=== PATIENT | female | born 1975 | race Caucasian/White ===

== ENCOUNTER → 2017-06-03 11:57 | Outpatient (CLI) | payer MEDICAID, SELFPAY ==
--- NOTE | 2017-06-03 12:00 | RAD_ITS ---
STUDY: X-RAY - PELVIS AND BILATERAL HIPS REASON FOR EXAM: Female, 42 years old. Bilateral hip pain. TECHNIQUE: Radiological exam, hip, bilateral, with pelvis when performed; 2 views COMPARISON: July 10, 2015 FINDINGS: There is a non-specific bowel gas pattern. Normal visualized soft tissue structures. Normal bilateral iliac wings, sacroiliac joints and visualized sacrum. Normal bilateral superior and inferior pubic rami. Normal pubic symphysis. Normal bilateral ischial tuberosities. There is stable mild arthrosis of both hips, left slightly greater than right. RAD/Hips B/L min 2 views w/ Pelvis IMPRESSION: Stable mild arthrosis of both hips, left slightly greater than right. Electronically Signed: Brent George MD at 18:45 EST , Service support ,
== END ==
PROVIDERS: Visit Provider Anesthesiology Pain Medicine
DX: M25.559 Pain in unspecified hip (principal)
CPT/HCPCS: 73521

== ENCOUNTER 2017-06-24 21:57 | Emergency (ER) | payer MEDICAID, SELFPAY ==
[2017-06-24 21:58] VITALS: BP 164/110; PULSE 98; RESP 20; TEMP 36.4; O2SAT 95; BMI 44.4
--- NOTE | 2017-06-24 22:48 | ED.VISSUMM ---
- ER Visit Summary Date of Service: 06/24/17 Chief Complaint: Headache History of Present Illness: The patient is a 42 F presenting with gradual onset headache ?2 weeks. She states she has tried Sudafed, DayQuil at home with no relief. She states the headache has been persistent for 2 weeks. She has a history of migraine headaches. Denies trauma. Denies fever. She has a history of chronic neck pain and she is in pain management. Denies other complaints. Physical Examination: Vitals are stable. Patient is afebrile. Alert no acute distress. HEENT exam is unremarkable. Neck is supple. No meningismus Lungs are clear and equal bilaterally. Heart is regular rate and rhythm. Abdomen is soft nontender nondistended. Extremities are unremarkable. Skin is warm and dry. No focal neurologic deficit. Remainder of exam is unremarkable. Emergency Department Course and Treatment: Patient has multiple allergies. She is given morphine, Phenergan IV. On repeat evaluation, patient is feeling much improved. She is advised to follow-up with her primary care physician and her pain management physician. She is advised return to ED for worsening complaints. Disposition: Discharge home Impression: Headache, improved This note was generated with [employer] dictation software. It may contain incorrect words, spelling, and punctuation that were not noted in review of the chart prior to signing ED Disposition - Plan for ED Patient: Chief Complaint: Headache Referrals: Sachin Kapoor,Out of [Primary Care Provider] -
--- NOTE | 2017-06-25 00:09 | ED.DEP ---
ED Disposition - Plan for ED Patient: Chief Complaint: Headache Instructions: ED Cephalgia Unspecified Referrals: [facility],Out of [Primary Care Provider] -
[2017-06-25 00:12] VITALS: BP 128/89; PULSE 89; RESP 14
== END 2017-06-25 00:19 | disposition home or self-care (01) ==
PROVIDERS: Emergency Provider Emergency Medicine
DX: R51 Headache (principal); M54.2 Cervicalgia; J45.909 Unspecified asthma, uncomplicated; I10 Essential (primary) hypertension; Z72.0 Tobacco use; Z79.899 Other long term (current) drug therapy
CPT/HCPCS: 96374; 96375; 99283; A4216

== ENCOUNTER 2017-08-20 13:00 | Outpatient (RCR) | payer MEDICAID, SELFPAY ==
--- NOTE | 2017-07-09 12:05 | HP.PTEVAL_ITS ---
Patient's Visit Information RICKY SERRATO is a 42 year old F referred to Physical Therapy by Michell CONSTANTINO with a diagnosis of NECK, BACK AND HIP PAIN. Date of Evaluation: 07/09/17 Physical Therapist: Joslyn Sinclair - Visit Plan Frequency: 2-3x /Week Duration: 4-6 Weeks Plan: LATEX ALLERGY. PATIENT REPORTS SHE DOES NOT SWIM AND THERAPIST MAY NEED TO GET IN THE POOL. AQUATIC THERAPY FOR POSTURE CORRECTION/STRENGTHENING, INSTRUCTION IN APPROPRIATE BODY MECHANICS AND ACTIVITY MODIFICATIONS. DLS STARTING WITH A NEUTRAL SPINE PROGRESSING ROM TOLERATED. QUINCY LE ROM, STRETCHING AND STRENGTHENING. HEP INSTRUCTION. - Subjective Subjective: Diagnosis: NECK, BACK AND HIP PAIN. 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 Disability: YES. PATIENT REPORTS IT IS NONE OF MY BUSINESS WHY SHE IS ON DISABILITY. Present symptoms: NECK PAIN, QUINCY HIP PAIN, LOW BACK PAIN. INTERMITTENT QUINCY UE AND LE DAILY PAIN, NUMBNESS AND TINGLING IN HER ARMS. BUT THERE ARE ALSO SPOTS IN LEGS, NECK AND BACK THAT ARE ALWAYS NUIMB. Present since: YEARS. Pain Scale: WORST 10/10, LEAST 6/10. Currently: 8/10. Commenced as a result of: NO APPARENT REASON. Symptoms at onset: PATIENT STATES SHE DOESN'T KNOW. Worse: WALKING, DOING DISHES, SWEEPINIG AND MOPPING, STEPS, LIFTING LAUNDRY, DRIVING, GETTING UP AND DOWN FROM THE TOLIET AND TRYING TO WIPE, BENDING. Better: I DON'T KNOW TENSION HEADACHE MEDICINE FROM [email or web address] Application. [employer] HEMP OIL. Disturbed sleep : YES. Previous history/Previous treatment: PHYSICAL THERAPY HERE AT [facility], MASSAGE THERAPY, CHIROPRACTIC, NO SPIINE OR HIP SURGERIES. NECK AND HIP INJECTIONS. NECK INJECTIONS DID NOT HELP AND THE HIP INJECTIONS HELPED FOR MAYBE A WEEK. Coughing/sneezing/straining: POSITIVE. Gait: USES A WALKER AT TIMES IF GOING OUT. USES A W/C AT TIMES TOO. Difficulty initiating urinatin: NO. DIZZINESS: YES. NAUSEA: YES. TINNITIS: YES. DIFFICULTY SWOLLOWING: YES. Accidents: NO. Unexplained weight loss: 35 LBS IN ABOUT A MONTH RECENTLY THAT SHE REOPORTS HER DOCTORS ARE AWARE OF. Imaging: Stable mild arthrosis of both hips, left slightly greater than right. JULY 2013 NECK - Normal cervical lordosis. There is mild disc space narrowing with endplate. spondylosis predominantly at C4-5 and C5-6. Uncovertebral joint spurring. is also noted at these levels. Normal disc space heights. No acute. fracture demonstrated. PMH: STROKE 2005, HTN, LOW BLOOD SUGAR. MIGRAINES. LATEX ALLERGY. 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 - Objective Sitting Posture: POOR. Lordosis: NORMAL. Lateral shift: NO. Relevant shift : N/A. Active Correction of posture: WORSE. Other Observations: INDEP GAIT INTO PT WITHOUT ASSISTIVE DEVICE OR LOSS OF BALANCE. INDEP TRANSFER SIT TO STAND WITHOUT UE ASSIST. Motor deficit: LEFT UE AND LE STRENGTH 5/5 WITH MMT. RIGHT UE AND LE STRENGTH GROSSLY 4/5 WITH MMT. Sensory deficit: QUINCY UE AND LE LIGHT TOUCH SENSATION APPEARS TO BE INTACT AND SYMMETRICAL BUT MORE SOPHISTICATED TESTING MAY BE BENEFICIAL. ROM deficit: QUINCY SHOULDER ELEVATION IS APPROXIMATELY 25% LIMITED. Dural Signs: POSITIVE QUINCY LE DURAL SIGNS. Lumbar mvmt loss: flex - MOD. ext - MOD. R SG - MOD. L SG - MOD. Core strength: POOR. Posture strength: poor. Cervical mvmt loss: MINIMAL ALL PLANES EXCEPT RETRACTION MODERATE. PATIENT HAS C/O INCREASED NECK PAIN AND INCREASED LOW BACK PAIN WITH ROM TESTING ALL PLANES. PATIENT ALSO HAS C/O INCREASED PAIN IN SHOULDERS AND HIPS WITH MMT'ING EVEN THOUGH I PROCEEDED CAREFULLY WITH ALL TESTING. Palpation: OTHER: PATIENT GETS AGGITATED OFF AND ON THROUGH OUT SESSION. STATES SHE JUST WANTS AN MRI AND DOES NOT WANT TO HAVE TO DO PT AGAIN. - Goals Goal 1:: DECREASE C/O NECK, BACK AND HIP PAIN Goal Time Frame: 4-6 Weeks Goal 2:: IMPROVE PERSONAL CARE, LIFTING, WALKING, SITTING, STANDING, SLEEP, SOCIAL LIFE, TRAVEL AND EMPLOYMENT/HOMEMAKING FUNCTION. Goal Time Frame: 4-6 Weeks Goal 3:: INSTRUCT IN PROPHYLAXIS Goal Time Frame: 4-6 Weeks - Rehabilitation Potential Rehabilitation Potential: Fair - Anticipated Interventions Patient/Client Instruction: Educate patient on: Condition, Plan of Care, Risk Factors, Benefits of Fitness Program For the Purpose of:: To improve self management Therapeutic Exercise to Include: Strength training, Body mechanics, Postural training, Flexibilty training, In an aquatic setting, Active ROM, Dynamic Lumbar Stabilization, Scapular Strength/Stabilization For the Purpose of:: To decrease pain, To increase ROM, To improve muscle performance and motor function, To improve ability to perform ADL's, To increase tolerance to activity/condition/position, To improve ability of physical actions for home/community/work/leisure, To improve gait and locomotor functions Thank you for the opportunity to evaluate your patient. For Medicare and Medicare HMO plans, please review the plan of care and approve it. It will need to be FAXED BACK to us at [phone] for Medicare purposes. Please let me know if there are questions or concerns regarding this plan of care. Physician Signature: Date:
--- NOTE | 2017-08-10 12:16 | HP.PT.NRP ---
HP - Discharge Summary (1) - Patient Information RICKY SERRATO was seen in my office for initial evaluation on 07/09/17. The following Plan of Care was established for this patient: Initial Frequency: 2-3x /Week Initial Duration: 4-6 Weeks - Anticipated Interventions Patient/Client Instruction: Educate patient on: Condition, Plan of Care, Risk Factors, Benefits of Fitness Program For the Purpose of:: To improve self management Therapeutic Exercise to Include: Strength training, Body mechanics, Postural training, Flexibilty training, In an aquatic setting, Active ROM, Dynamic Lumbar Stabilization, Scapular Strength/Stabilization For the Purpose of:: To decrease pain, To increase ROM, To improve muscle performance and motor function, To improve ability to perform ADL's, To increase tolerance to activity/condition/position, To improve ability of physical actions for home/community/work/leisure, To improve gait and locomotor functions This patient was last seen in our office . Pertinent comments regarding their Physical therapy will appear below: This patient has not returned to Physical Therapy and is appropriate to return to MD for further follow-up as needed. At this point I will be discontinuing this patient from physical therapy. I would be happy to see this patient again in the future if found appropriate by the physician. Thank you! Joslyn Sinclair
== END 2017-08-20 19:00 | disposition home or self-care (01) ==
LOC: PT 13:00
PROVIDERS: Visit Provider Anesthesiology Pain Medicine
DX: M54.9 Dorsalgia, unspecified (principal); M54.2 Cervicalgia; M79.606 Pain in leg, unspecified
CPT/HCPCS: 97113; 97162

== ENCOUNTER → 2019-06-02 09:59 | Outpatient (CLI) | payer MEDICAID, SELFPAY ==
[2019-06-02 09:52] VITALS: BMI 44.4
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
== END ==
PROVIDERS: Referring Provider Physician Assistant; Visit Provider Physician Assistant
DX: M54.2 Cervicalgia (principal); M25.511 Pain in right shoulder
CPT/HCPCS: 72050; 73030

== ENCOUNTER → 2020-06-25 13:19 | Outpatient (CLI) | payer MEDICAID, SELFPAY ==
[2019-06-02 09:52] VITALS: BMI 44.4
--- NOTE | 2020-06-25 13:27 | CT_ITS ---
STUDY: CTA CORONARY REASON FOR EXAM: Female, 45 years old. PAIN RADIATION DOSAGE (If Supplied By Facility): CTDIvol = ( 19.29 ) mGy, DLP = ( 800.13 ) mGycm TECHNIQUE: Tomographic images were obtained of the heart and chest with a 64 detector row scanner using slice thicknesses of less than 1 mm. IV 100mL Isovue-300 was injected intravenously. Post-processing of the angiographic images was performed, with multiplanar reformation and 3D reconstruction. Individualized dose optimization techniques were used for this CT. TECHNICAL QUALITY: Fair COMPARISON: None. CORONARY ANGIOGRAPHY: Coronary CT Angiogram Descriptors of Atherosclerosis: Stenosis: None (0%) Mild (< 50%) Moderate (50-70%) Severe (70-90%) Subtotal/Total Occlusion (90-100%) Non-Evaluable Plaque Characteristics: None Non-Calcified (Soft) Calcified Mixed FINDINGS: LEFT MAIN CORONARY ARTERY: Left Main Coronary Artery CT Angiogram: Free of significant atherosclerosis. LEFT ANTERIOR DESCENDING ARTERY: Left Anterior Descending (LAD) Coronary Artery CT Angiogram: Proximal 1/3: Free of significant atherosclerosis. Middle 1/3: Free of significant atherosclerosis. Distal 1/3: Free of significant atherosclerosis. 1st Diagonal Branch: Free of significant atherosclerosis. 2nd Diagonal Branch: Free of significant atherosclerosis. LEFT CIRCUMFLEX ARTERY: Left Circumflex (LCx) Coronary Artery CT Angiogram: Proximal 1/2: Free of significant atherosclerosis. Distal 1/2: Free of significant atherosclerosis. High Lateral Branches: Free of significant atherosclerosis. Obtuse Marginal Branches: Free of significant atherosclerosis. RIGHT CORONARY ARTERY: Right Coronary Artery (RCA) CT Angiogram: Proximal 1/3: Free of significant atherosclerosis. Middle 1/3: Free of significant atherosclerosis. Distal 1/3: Not assessable. PDA: Not assessable. I-L Branches: Not assessable. CORONARY ARTERY BYPASS GRAFTS: None. NONCORONARY CARDIAC STRUCTURE: CARDIAC CHAMBERS: Normal CARDIAC VALVES: Normal. PERICARDIUM: Normal. GREAT VESSELS: Normal. VISUALIZED LUNG PARENCHYMA, MEDIASTINUM AND CHEST WALL: Normal. CT/Limited Chest CT w/CCTA IMPRESSION: Normal examination free of significant atherosclerosis. Electronically Signed: Trenton Flores MD (Brooks) at 8:48 EDT , Service support ,
[2020-06-25 13:34] VITALS: BP 132/77; PULSE 73; RESP 18; TEMP 37; O2SAT 97; BMI 47.7
[2020-06-25 13:59] VITALS: BP 132/77; PULSE 78
[2020-06-25] MEDS: Metoprolol Tartrate 5 MG/5 ML Vial IV (13:59)
[2020-06-25 14:10] VITALS: PULSE 69
[2020-06-25] MEDS: Nitroglycerin SL (ED/IMG/CATH) 0.4 MG TABLET SL (14:10)
[2020-06-25 14:20] VITALS: BP 120/74; PULSE 80; RESP 18; O2SAT 95
--- NOTE | 2020-06-25 14:23 | NURSING ---
PT TOLERATED CCTA WELL. TO WR TO MEET IN WC.
--- NOTE | 2020-06-26 09:23 | CCTA_ITS ---
CCTA w/Cont Coronary Arteries Date of Study:: 06/25/20 Chest pain The patient underwent a standard coronary CTA after proper consent obtained. Th e patient was administered 100 cc of intravenous contrast agent. The images were reconstructed and compared in the standard format. There was no significant misregistration artifact noted. Coronary calcium score was not obtained due to insurance issues. 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 [] LEFT CIRCUMFLEX CORONARY ARTERY: No significant stenosis was noted [] RIGHT CORONARY ARTERY: Dominant vessel from the right coronary cusp with no significant stenosis noted [] THORACIC AORTA: Normal size noted Conclusion: No significant atherosclerotic coronary disease noted.
== END ==
PROVIDERS: PCP Student in an Organized Health Care Education/Training Program; Referring Provider Nurse Practitioner Family; Visit Provider Nurse Practitioner Family
DX: R07.9 Chest pain, unspecified (principal)
CPT/HCPCS: 75574; 76380; 96374; Q9967; A4216

== ENCOUNTER 2021-09-10 23:40 | Emergency (ER) | payer MEDICAID, SELFPAY ==
[2021-09-10 23:41] VITALS: BP 157/95; PULSE 78; RESP 16; TEMP 37.1; O2SAT 95; BMI 46.6
[2021-09-10 23:45] VITALS: BP 157/88; PULSE 82; RESP 18; O2SAT 94; O2SAT 95
[2021-09-11 00:51] VITALS: BP 162/85; PULSE 88; RESP 24; TEMP 37.1; O2SAT 94
--- NOTE | 2021-09-11 01:04 | RAD_ITS ---
STUDY: X-RAY CHEST REASON FOR EXAM: Female, 46 years old. SOB TECHNIQUE: Single AP portable view of the chest. COMPARISON: None. FINDINGS: The lungs are clear and expanded. There is no demonstrated pleural abnormality. Normal size heart. Normal mediastinum and adrian. Normal visualized pulmonary arteries. Normal visualized aortic arch and descending thoracic aorta. Normal visualized thoracic spine. Normal visualized ribs, clavicles, and shoulders. There is no demonstrated abnormality of the visualized soft tissue structures of the upper abdomen. RAD/Chest 1 View (Portable) IMPRESSION: Normal x-ray examination of the chest. Electronically Signed: Faviola Blake MD at 2:04 EDT ,
[2021-09-11 01:05] VITALS: PULSE 82; RESP 16
[2021-09-11] MEDS: Ipratropium/Albuterol Sulfate 3 ML AMPUL.NEB INHALATION (01:06)
[2021-09-11 01:19] VITALS: RESP 20; O2SAT 98
[2021-09-11 01:31] LABS: Absolute Lymphocyte Count 2.79 X10^3/uL (0.83-4.51); Absolute Neutrophil Count 6.4 X10^3/uL (2.0-7.7); Basophil# 0.05 X10^3/uL; Basophil% 0.5 % (0-1); Eosinophil# 0.41 X10^3/uL; Eosinophils% 3.9 % (0-5); Hematocrit 41.4 % (37-47); Hemoglobin 13.8 g/dL (12.0-15.0); Lymphocyte # 2.79 X10^3/ul (0.83-4.51); Lymphocyte % 26.2 % (19-41); Mean Corp Hgb Conc 33.3 g/dL (32-36); Mean Corpuscular Hgb 30.9 pg (27.0-32.0); Mean Corpuscular Volume 92.8 fL (81-99); Mean Platelet Vol. 9.5 fl (6.2-12.0); Monocyte# 0.93 X10^3/uL; Monocyte% 8.7 % (0-10); NRBC Flagged by Analyzer 0 % (0-5); Neutrophil # 6.43 X10^3/uL (2.7-7.7); Neutrophil % 60.4 % (47-70); Platelet Count 186 K/mm3 (150-450); RBC Distribution Width CV 13.4 % (11.6-14.6); RBC Distribution Width SD 45.6 fl (35.1-43.9); Red Blood Count 4.46 M/mm3 (4.2-5.4); White Blood Count 10.6 K/mm3 (4.4-11.0)
[2021-09-11 01:48] LABS: D-Dimer Quantitative (DVT/PE) 0.27 FEU/ug/m (0.27-0.49)
[2021-09-11 01:54] LABS: Anion Gap 5 (5-15); BUN 11 mg/dL (7-18); BUN/Creat Ratio 12.2 RATIO (10-20); Chloride 108 mmol/L (98-107); EST Glomerular Filtration Rate 72 mL/min (>60); Est Glom Filt Rate - Afr Amer 87 mL/min (>60); Estimated Creatinine Clearance 74.67 ml/min; Glucose 113 mg/dL (74-106); Sodium Level 138 mmol/L (136-145)
[2021-09-11] MEDS: predniSONE 20 MG Tablet 60 MG PO (01:58)
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
--- NOTE | 2021-09-11 02:28 | ED.VIS.DYS ---
HPI History of Present Illness Chief Complaint: Cough Informant: patient Narrative Narrative: Patient is a 46-year-old female with history of asthma, PA-1 and MTHFR presenting with shortness of breath and difficulty breathing. Patient states she has had worsening productive cough for the past month. Today her AC went out in her house was 87 degrees. She states she suddenly felt she could not breathe. She felt like an asthma flare. She is due inhaler but it was not working. She notes she does not have a spacer or nebulizer anymore. She does describe associated chest tightness with cough productive of blood-tinged, yellow, white and intermittently green sputum. States when she lays down flat she feels like she is drowning in phlegm. Denies any fever. Does report upper respiratory symptoms including nasal congestion and sore throat. No other complaints at this time. [facility] Medical History HTN (hypertension) Home Medications albuterol mcg INHALATION 09/10/21 [History Last Taken Unknown] diaper,brief,adult,disposable [Depend Underwear For Women XL] #26 ea 09/11/21 [Rx Last Taken Unknown] fluconazole 150 mg PO DAILY #1 tab 09/11/21 [Rx Last Taken Unknown] prednisone 40 mg PO DAILY #8 tab 09/11/21 [Rx Last Taken Unknown] Allergy/AdvReac Type Severity Reaction Status Date / Time latex Allergy Severe Swelling Verified 09/10/21 23:41 amoxicillin [Amoxicillin] Allergy Rash Verified 09/10/21 23:41 cephalexin [Cephalexin] Allergy Rash Verified 09/10/21 23:41 ketorolac tromethamine Allergy Shortness Verified 09/10/21 23:41 [From Toradol] of breath levofloxacin [From Levaquin] Allergy Shortness Verified 09/10/21 23:41 of breath NSAIDS (Non-Steroidal Allergy Shortness Verified 09/10/21 23:41 Anti-Inflamma of breath Penicillins Allergy Rash Verified 09/10/21 23:41 Pertussis Vaccines Allergy Rash Verified 09/10/21 23:41 diphenhydramine HCl AdvReac Other Verified 09/10/21 23:41 [From Benadryl] Social History Smoking Status: Current every day smoker tobacco type: cigarettes ROS ROS ED Constitutional Constitutional ED: Denies chills or fever(s) Eyes Eyes: Denies change in vision ENT ENT ED: Reports ear pain, rhinorrhea and sore throat Cardiovascular Cardiovascular: Reports orthopnea; Denies chest pain Respiratory/Chest Respiratory/Chest: Reports cough, dyspnea, orthopnea and sputum Gastrointestinal Gastrointestinal: Denies abdominal pain, diarrhea, nausea or vomiting Genitourinary Genitourinary ED: Denies dysuria Musculoskeletal Musculoskeletal: Denies arthralgias or myalgias Integumentary Denies rash Neurologic Neurologic: Denies headache(s) or weakness Psychiatric Psychiatric: Denies depression EXAM Physical Exam Const Vital Signs: 09/10/21 23:41 09/10/21 23:45 09/11/21 00:51 Temperature 98.8 F 98.8 F Temperature Source Temporal Oral Pulse Rate 78 82 88 Respiratory Rate 16 18 24 H Respiratory Effort Normal Respiratory Depth Normal Blood Pressure 157/95 H 157/88 H 162/85 H Blood Pressure Mean 115 111 110 Pulse Ox 95 94 94 Oxygen Delivery Method Room Air Room Air Room Air 09/11/21 01:05 09/11/21 01:19 09/11/21 01:30 Temperature Temperature Source Pulse Rate 82 Respiratory Rate 16 20 H Respiratory Effort Respiratory Depth Blood Pressure Blood Pressure Mean Pulse Ox 98 Oxygen Delivery Method Room Air Room Air Positive well nourished, well developed and obese General Appearance ED: well developed Nutritional Appearance: obese HEENT Reports TM's clear and moist mucous membranes atraumatic Tympanic Membrane ED: Yes TM's clear Eyes PERRL and EOMs intact bilaterally Neck supple, no meningeal signs and no JVD Resp Auscultation: wheezes and diminished lung sounds Cardio regular rate, regular rhythm and no murmurs GI non-tender and non-distended Palpation: soft Back/Spine normal to inspection Extremity normal to inspection General Extremety ED: Negative for edema or tenderness General Extremity: Negative for edema Neuro oriented x3 Sensorium / Orientation: alert Motor Exam: Negative for general weakness Psych mental status grossly normal Skin no wounds Lesions: no lesions Rashes: no rashes MDM MDM MDM Narrative Medical decision making narrative: Patient is evaluated for sudden onset of worsening shortness of breath. She has wheezing on presentation. She is given a DuoNeb with significant improvement of her symptoms. Work-up most consistent with asthma exacerbation. D-dimer is obtained which is normal. No significant electrolyte abnormalities and normal CBC. Chest x-ray does not show any acute infiltrate. Interpreted by myself as well as radiology. On repeat evaluation patient is much improved. She is requesting 1 more albuterol treatment prior to discharge. She is given first dose of prednisone in the ER. She will be given a one-time dose of fluconazole to take after she finishes her steroids per patient request. Patient counseled return precautions. She is encouraged to call her primary care doctor tomorrow to ask for an order for a nebulizer. Lab Data Attestation: I reviewed the patient's lab results. Labs: Laboratory Results - last 24 hr 09/11/21 09/11/21 09/11/21 01:25 01:25 01:25 WBC 10.6 RBC 4.46 Hgb 13.8 Hct 41.4 MCV 92.8 MCH 30.9 MCHC 33.3 RDW Std Deviation 45.6 H RDW Coeff of Rafi 13.4 Plt Count 186 MPV 9.5 Immature Gran % (Auto) 0.300 Neut % (Auto) 60.4 Lymph % (Auto) 26.2 Wetzel % (Auto) 8.7 Eos % (Auto) 3.9 Baso % (Auto) 0.5 Absolute Neuts (auto) 6.4 Absolute Lymphs (auto) 2.79 Nucleated RBC % 0 D-Dimer Quant (PE/DVT) 0.27 Sodium 138 Potassium 4.0 Chloride 108 H Carbon Dioxide 25.0 Anion Gap 5 BUN 11 Creatinine 0.90 Estim Creat Clear Calc 74.67 Est GFR (MDRD) Af Amer 87 Est GFR (MDRD) Non-Af 72 BUN/Creatinine Ratio 12.2 Glucose 113 H Calcium 9.0 Radiography Chest X-Ray - ED: 1 View, Read by ED Physician, Read by Radiologist and No Acute Disease Diagnostic Testing: Clinical Impression(s) from Imaging Studies Chest X-Ray 09/11/21 01:04 IMPRESSION: Normal x-ray examination of the chest. Electronically Signed: Faviola Blake MD at 2:04 EDT , Discharge Plan Triage Chief Complaint: Cough ED Provider: Rita Moses Dx/Rx/DC Orders Clinical Impression: Asthma exacerbation Instructions: ED Asthma, Acute (Adult) Prescriptions: New prednisone 20 mg tablet 40 mg PO DAILY Qty: 8 RF: 0 fluconazole 150 mg tablet 150 mg PO DAILY Qty: 1 RF: 0 (DME) Depend Underwear For Women XL Misc See Rx Instructions .ROUTE .MEDSUPPLY Qty: 26 RF: 0 No Action albuterol 90 mcg/actuation Aerosol INHALATION RF: 0 Primary Care Provider: Daren Hamilton Referrals: Daren Hamilton DO [Primary Care Provider] - Activity Restrictions/Additional Instructions: Continue using your albuterol inhaler with spacer every 4-6 hours as needed for shortness of breath and wheezing. Disposition Disposition: Home, Self Care
[2021-09-11] MEDS: Albuterol 2.5 MG/3 ML VIAL.NEB. INHALATION (03:12)
[2021-09-11 03:13] VITALS: PULSE 83; RESP 18
[2021-09-11 03:19] VITALS: BP 158/78; PULSE 83; RESP 18; O2SAT 95
== END 2021-09-11 03:23 | disposition home or self-care (01) ==
PROVIDERS: Emergency Provider Emergency Medicine; PCP Student in an Organized Health Care Education/Training Program; Visit Provider Emergency Medicine
DX: J45.901 Unspecified asthma with (acute) exacerbation (principal); Z68.42 Body mass index [BMI] 45.0-49.9, adult; I10 Essential (primary) hypertension; Z79.899 Other long term (current) drug therapy; F17.210 Nicotine dependence, cigarettes, uncomplicated; E66.9 Obesity, unspecified
CPT/HCPCS: 94640; 71045; 80048; 85025; 85379; 87811; 94760; 99284; A4216

== ENCOUNTER 2022-09-29 19:00 | Emergency (ER) | payer MEDICAID, SELFPAY ==
[2022-09-29 19:06] VITALS: BP 189/95; PULSE 104; RESP 18; TEMP 35.7; O2SAT 97; BMI 49.1
--- NOTE | 2022-09-29 19:15 | RAD_ITS ---
EXAM: XR RIGHT FOOT COMPLETE, 3 OR MORE VIEWS CLINICAL INDICATION: PAIN TECHNIQUE: Frontal, lateral and oblique views of the right foot. COMPARISON: No relevant prior studies available. FINDINGS: BONES/JOINTS: There is a calcaneal spur. There is an enthesophyte involving the posterior superior calcaneus at the site of insertion of the Achilles tendon. No acute fracture. No subluxation. Normal alignment. Preservation of the joint space. No sclerotic or destructive changes observed. SOFT TISSUES: There is non specific soft tissue swelling around the foot. No radiopaque foreign body. RAD/Foot min 3 Views IMPRESSION: There is non specific soft tissue swelling around the foot. Electronically Signed: Rik Ogden MD at 19:52 EDT ,
--- NOTE | 2022-09-29 21:54 | EDS_ITS ---
HPI History of Present Illness Chief Complaint: Lower Extremity Injury Detail of Chief Complaint: Right fifth toe injury Informant: patient Onset/Context/Timing Onset: Yesterday Narrative Narrative: Patient states she woke yesterday morning with pain to the right fifth toe. She points to the MTP joint. She states she felt okay when she went to bed that night. She thinks she may have kicked the dresser in her sleep. She denies history of gout. She does not member any injury. [facility] Medical History Asthma HTN (hypertension) Home Medications albuterol 90 mcg/actuation aerosol inhaler mcg inhalation 09/10/21 [History Last Taken Unknown] diaper,brief,adult,disposable (Depend Underwear For Women XL) #26 ea 09/11/21 [Rx Last Taken Unknown] fluconazole 150 mg tablet 150 mg PO DAILY #1 TAB 09/11/21 [Rx Last Taken Unknown] prednisone 20 mg tablet 40 mg PO DAILY #8 tabs 09/11/21 [Rx Last Taken Unknown] prednisone 20 mg tablet 40 mg PO DAILY #8 tabs 09/29/22 [Rx Last Taken Unknown] Allergy/AdvReac Type Severity Reaction Status Date / Time latex Allergy Severe Swelling Verified 09/29/22 19:08 amoxicillin [Amoxicillin] Allergy Rash Verified 09/29/22 19:08 cephalexin [Cephalexin] Allergy Rash Verified 09/29/22 19:08 ketorolac tromethamine Allergy Shortness Verified 09/29/22 19:08 [From Toradol] of breath levofloxacin [From Levaquin] Allergy Shortness Verified 09/29/22 19:08 of breath NSAIDS (Non-Steroidal Allergy Shortness Verified 09/29/22 19:08 Anti-Inflamma of breath Penicillins Allergy Rash Verified 09/29/22 19:08 Pertussis Vaccines Allergy Rash Verified 09/29/22 19:08 diphenhydramine HCl AdvReac Other Verified 09/29/22 19:08 [From Benadryl] Social History Smoking Status: Current every day smoker tobacco type: cigarettes ROS ROS ED Constitutional Constitutional ED: Denies chills or fever(s) Eyes Eyes: Denies change in vision or discharge from eye(s) ENT ENT ED: Denies discharge from eye(s), rhinorrhea or sore throat Cardiovascular Cardiovascular: Denies chest pain or palpitations Respiratory/Chest Respiratory/Chest: Denies cough or dyspnea Gastrointestinal Gastrointestinal: Denies abdominal pain, diarrhea, nausea or vomiting Genitourinary Genitourinary ED: Denies dysuria Musculoskeletal Musculoskeletal: Reports extremity pain; Denies back pain Integumentary Denies Abrasions or rash Neurologic Neurologic: Denies headache(s) or weakness Psychiatric Psychiatric: Denies anxiety or depression Allergic/Immunologic Allergic/Immunologic ED: Denies lip swelling or urticaria EXAM Physical Exam Const Vital Signs: 09/29/22 19:06 Temperature 96.2 F L Temperature Source Temporal Pulse Rate 104 H Respiratory Rate 18 Blood Pressure 189/95 H Blood Pressure Mean 126 Pulse Ox 97 Positive well nourished and well developed General Appearance ED: well developed HEENT Reports normocephalic and head/scalp atraumatic Eyes PERRL and EOMs intact bilaterally Neck supple Chest Wall inspection of chest normal and palpation of chest normal Resp normal respiratory effort and clear to auscultation bilaterally Cardio regular rate and regular rhythm GI normal to inspection, nondistended, normoactive bowel sounds Palpation: soft Extremity Extremity Narrative: Minimal erythema to the right fifth MTP joint. Skin very sensitive to touch. No significant edema. No open wounds. Neuro oriented x3 and no sensory deficits noted Sensorium / Orientation: alert Psych mental status grossly normal MDM MDM MDM Narrative Medical decision making narrative: Right foot x-rays were obtained per nursing protocol. Radiography Diagnostic Testing: Clinical Impression(s) from Imaging Studies Foot X-Ray 09/29/22 19:15 IMPRESSION: There is non specific soft tissue swelling around the foot. Electronically Signed: Rik Ogden MD at 19:52 EDT Reading Location ID and State: [facility] / [place] , Service support , Treatment and Re-Evaluation :: Right foot x-ray per my interpretation was no evidence of acute bony injury. Radiology interpretation is reviewed and agrees. I discussed with the patient that she may have a contusion versus early gout given the slight erythema and significant tenderness. She has an allergy to NSAIDs but has tolerated steroids in the past. She is treated with a course of prednisone. I gave her a single dose of Percival here and then she will continue Tylenol at home. She is referred to podiatry for follow-up as needed. Return instructions given. Discharge Plan Triage Chief Complaint: Lower Extremity Injury ED Provider: Daisy Griffith Dx/Rx/DC Orders Clinical Impression: Contusion of foot Instructions: ED Foot Contusion Prescriptions: New prednisone 20 mg tablet 40 mg PO DAILY Qty: 8 0RF No Action albuterol 90 mcg/actuation Aerosol INHALATION prednisone 20 mg tablet 40 mg PO DAILY Qty: 8 0RF fluconazole 150 mg tablet 150 mg PO DAILY Qty: 1 0RF Rx Instructions: take after finishing course of steroids (DME) Depend Underwear For Women XL Misc See Rx Instructions .ROUTE .MEDSUPPLY Qty: 26 0RF Rx Instructions: As directed Primary Care Provider: Daren Hamilton Referrals: Daren Hamilton DO [Primary Care Provider] - Jonathan Sharp DPM [Med Staff - Active Staff] - As Needed Disposition Disposition: Home, Self Care Discharge Date/Time: 09/29/22 22:22
[2022-09-29] MEDS: HYDROcodone Bitartrate/Apap 5/325 Tablet PO (22:15)
[2022-09-29] MEDS: predniSONE 20 MG Tablet 60 MG PO (22:15)
== END 2022-09-29 22:22 | disposition home or self-care (01) ==
LOC: ED 22:03
PROVIDERS: Emergency Provider Emergency Medicine; PCP Student in an Organized Health Care Education/Training Program; Visit Provider Emergency Medicine
DX: S90.121A Contusion of right lesser toe(s) without damage to nail, initial encounter (principal); F17.210 Nicotine dependence, cigarettes, uncomplicated; I10 Essential (primary) hypertension; W22.03XA Walked into furniture, initial encounter; J45.909 Unspecified asthma, uncomplicated
CPT/HCPCS: 73630; 99284

== ENCOUNTER 2022-10-28 23:10 | Emergency (ER) | payer MEDICAID, SELFPAY ==
[2022-10-28 23:14] VITALS: BP 146/81; PULSE 88; RESP 18; TEMP 37.1; O2SAT 97; BMI 49.6
--- NOTE | 2022-10-28 23:22 | CT_ITS ---
INDICATION: Fall, diminished patella, ankle reflex and absent -- EHL is absent on the left EXAMINATION: CT LUMBAR SPINE - CT Spine Lumbar W/O Contrast Injection TECHNIQUE: Helically acquired images were obtained of the lumbar spine. 2D reformats were reviewed. A radiation dose optimization technique was used for this scan. IV Contrast dosage and agent: None. RADIATION DOSAGE (If Supplied By Facility): CTDIvol = ( 51.90 ) mGy, DLP = ( 2052.82 ) mGycm COMPARISON: CT abdomen and pelvis 10/22/2016. FINDINGS: ALIGNMENT: No subluxation. MINERALIZATION: Normal. VERTEBRAL BODIES: No fracture or acute abnormality. Minimal height loss with irregularity of the superior endplate of T11 is unchanged compared to prior. DISC SPACES: Mild disc space narrowing and osteophytes most pronounced at L4-5 and L5-S1. POSTERIOR ELEMENTS: Bilateral facet arthropathy throughout the lumbar levels, most pronounced in the lower levels. SPINAL CANAL: Mild to moderate narrowing secondary to posterior disc bulge/osteophyte complex and facet arthropathy at L3-4, L4-5, and L5-S1. PARASPINAL SOFT TISSUES: Unremarkable. OTHER: Degenerative changes at the sacroiliac joints. CT/Spine Lumbar without Contrast IMPRESSION: No evidence of fracture or subluxation. Degenerative changes with multilevel mild central canal stenosis. MRI may be helpful for further evaluation. Electronically Signed: Sunitha Sands MD at 0:48 EDT ,
--- NOTE | 2022-10-28 23:24 | RAD_ITS ---
INDICATION: Injury/Pain EXAMINATION/TECHNIQUE: X-RAY - LEFT XR Knee Complete 4 Views or More 4 VIEWS COMPARISON: FINDINGS: BONES: No fracture demonstrated. JOINTS: No dislocation. SOFT TISSUES: Unremarkable. RAD/Knee 4 or More Views IMPRESSION: No evidence of fracture. Electronically Signed: Sunitha Sands MD at 0:26 EDT ,
--- NOTE | 2022-10-28 23:25 | ED.VIS.FALL ---
HPI HPI - Fall History of Present Illness Chief Complaint: Lower Extremity Injury Detail of Chief Complaint: Patient fell because she slipped on a puppy pad this morning injuring her l Informant: patient Occured/Mechanism Occurred: Today and Hours Mechanism/Context: Yes same level fall and Yes slip Narrative: Patient states she has not been able to ambulate since the fall that occurred the morning of October 28. Patient arrived by ambulance. Usually ambulates: Without assistance Pain/Injury Location: Low back and left knee. Worsened by: Any type of movement Relieved by: Nothing Associated Symptoms Associated Symptoms: Positive for Loss of function and Inability to ambulate; Negative for Parasthesias, Weakness, Loss of consciousness or Amnesia Narrative Narrative: Patient is a 47-year-old woman who does endorse smoking daily who presents after mechanical fall the morning of October 28. She has not been able to walk since the fall. She presents because the pain is now excruciating. She localizes the pain to the central low back and left knee. She states she did hit her head. She did not have loss of conscious she is not amnestic. She is not on an antithrombotic or anticoagulant. She denies neck pain. She denies paresthesia, anesthesia or motor weakness of her upper extremity. She denies cardiac or respiratory symptoms. She denies black or maroon-colored stool. Patient states she has exquisite pain central low back. Question of pain radiating down the left leg. She says if she shifts in bed she has significant pain. She is also complaining of pain to the left knee. She states when she fell she landed on her buttocks and her knee buckled with a valgus deformity. Tetanus Immunization: 5-10 years Prior similar symptoms: No Recent Illness/Hospitalization: No PFSH PFS Medical History Asthma HTN (hypertension) no medical history (Patient states she is presently on no medication.) Home Medications albuterol 90 mcg/actuation aerosol inhaler mcg inhalation 09/10/21 [History Last Taken Unknown] diaper,brief,adult,disposable (Depend Underwear For Women XL) #26 ea 09/11/21 [Rx Last Taken Unknown] fluconazole 150 mg tablet 150 mg PO DAILY #1 TAB 09/11/21 [Rx Last Taken Unknown] prednisone 20 mg tablet 40 mg (2 x 20 mg) PO DAILY #8 tabs 09/11/21 [Rx Last Taken Unknown] prednisone 20 mg tablet 40 mg (2 x 20 mg) PO DAILY #8 tabs 09/29/22 [Rx Last Taken Unknown] hydrocodone-acetaminophen 5-325mg 5mg-325mg 1 tab PO Q6H PRN PRN Pain 3 days #10 TABLETS 10/29/22 [Rx Last Taken Unknown] naproxen 500 mg tablet 500 mg PO BID #10 tabs 10/29/22 [Rx Last Taken Unknown] Allergy/AdvReac Type Severity Reaction Status Date / Time latex Allergy Severe Swelling Verified 10/28/22 23:14 amoxicillin [Amoxicillin] Allergy Rash Verified 10/28/22 23:14 cephalexin [Cephalexin] Allergy Rash Verified 10/28/22 23:14 ketorolac tromethamine Allergy Shortness Verified 10/28/22 23:14 [From Toradol] of breath levofloxacin [From Levaquin] Allergy Shortness Verified 10/28/22 23:14 of breath NSAIDS (Non-Steroidal Allergy Shortness Verified 10/28/22 23:14 Anti-Inflamma of breath Penicillins Allergy Rash Verified 10/28/22 23:14 Pertussis Vaccines Allergy Rash Verified 10/28/22 23:14 diphenhydramine HCl AdvReac Other Verified 10/28/22 23:14 [From Benadryl] Social History (Updated 10/28/22 @ 23:[address] Jony Love MD) household members: spouse and children Smoking Status: Current every day smoker tobacco type: cigarettes substance use type: does not use ROS ROS ED Constitutional Constitutional ED: Denies chills, fever(s), subjective, sweats or weight loss Eyes Eyes: Denies blurry vision, change in vision or diplopia ENT ENT ED: Denies ear pain, rhinorrhea or sore throat Cardiovascular Cardiovascular: Denies chest pain, orthopnea, palpitations, paroxysmal nocturnal dyspnea or racing heartbeat Respiratory/Chest Respiratory/Chest: Denies cough, dyspnea, dyspnea on exertion, orthopnea or paroxysmal nocturnal dyspnea Gastrointestinal Gastrointestinal: Denies abdominal pain, constipation, diarrhea, melena, nausea or vomiting Genitourinary Genitourinary ED: Denies dysuria or hematuria Musculoskeletal Musculoskeletal: Reports back pain and other Details: Left knee pain ; Denies arthralgias, myalgias or neck pain Neurologic Neurologic: Denies headache(s) or paresthesias Psychiatric Psychiatric: Reports anxiety Endocrine Endocrinology: Denies polydipsia, polyphagia or polyuria Hematologic/Lymphatic Hematologic/Lymphatic: Denies easy bleeding or easy bruising EXAM Physical Exam Const Vital Signs: 10/28/22 23:14 Temperature 98.8 F Temperature Source Oral Pulse Rate 88 Respiratory Rate 18 Blood Pressure 146/81 H Blood Pressure Mean 102 Pulse Ox 97 Oxygen Delivery Method Room Air Positive well nourished, well developed, obese and unkempt Constitutional Narrative: Patient appears uncomfortable. General Appearance ED: unkempt and well developed Nutritional Appearance: obese HEENT Reports normocephalic and TM's normal bilaterally HEENT Narrative: There is no septal deviation hematoma. atraumatic Eyes PERRL and EOMs intact bilaterally Eyes Narrative: There is no subconjunctival hemorrhage. General Eye ED: Negative for pale conjunctiva or scleral icterus Neck full ROM, no lymphadenopathy and supple Chest Wall inspection of chest normal and palpation of chest normal Resp normal respiratory effort, no retractions and clear to auscultation bilaterally Cardio regular rate, regular rhythm, S1 normal heart sound, S2 normal heart sound and no murmurs GI non-tender, non-distended and no masses Back/Spine no CVA tenderness Back/Spine Narrative: Patient has pain outpatient midline over the lumbar region. Patient is not able to roll to the left or right without significant discomfort. She was not asked to sit up or roll over since she has apparent neurologic deficit L4 and L5 dermatome. Thoracic Spine / Upper Back: ROM limited and pain with ROM Extremity Extremity Narrative: There is slight swelling of the left knee compared to the right. There is joint line tenderness is greater laterally than medially. Patella is not ballotable. There is no effusion. She is able to hold her left leg in full extension. When she flexes past 140 degrees she has significant discomfort. Varus and valgus stress testing causes her significant discomfort. There is no obvious laxity compared to the uninjured knee. Unable to perform Anthony's test or modified oLurdes's test. EHL is absent on the left. The patella and ankle reflex are diminished compared to the right. Neuro oriented x3, No CN's II-XII intact bilaterally, moves all extremities, No no focal motor deficits and no sensory deficits noted [place] Coma Scale: document GCS findings Spontaneous Obeys Commands Oriented 15 Sensorium / Orientation: alert Motor Exam: strength 5/5 throughout Psych thought process normal Appearance: unkempt Mood & Affect: tearful Skin Lesions: no lesions Rashes: no rashes Trauma: Negative for abrasion MDM MDM MDM Narrative Medical decision making narrative: Knee exam was limited. In light of mechanism injury will obtain x-ray to evaluate for fracture, traumatic effusion. CT of the back was obtained because of neurologic findings and concern for fracture. This will better delineate and visualize the foramen as well as the canal and bony structures. Patient was medicated with morphine for her pain. Radiography Chest X-Ray - ED: Read by ED Physician (4 view x-ray of the knee reveals no evidence of fracture, subluxation, dislocation or effusion. The x-ray is normal.) Diagnostic Testing: Clinical Impression(s) from Imaging Studies Lumbar Spine CT 10/28/22 23:22 IMPRESSION: No evidence of fracture or subluxation. Degenerative changes with multilevel mild central canal stenosis. MRI may be helpful for further evaluation. Electronically Signed: Sunitha Sands MD at 0:48 EDT , Knee X-Ray 10/28/22 23:24 IMPRESSION: No evidence of fracture. Electronically Signed: Sunitha Sands MD at 0:26 EDT , CT report was read. Where she has multilevel central canal stenosis and bulging disc is congruent with her findings of diminished patella and ankle reflex and absent EHL. She was reassessed at 0110. Her reflexes appear more prominent on the left but there still is a difference. She is now able to dorsiflex her toe; ever, there is a noted difference. Uncertain whether this is truly due to stenosis and bulging disc versus pain. Patient will receive additional dose of morphine and reassess. I was informed by the registration person that when she entered the person stopped screaming and complaining of pain. Treatment and Re-Evaluation Narrative: Was informed by nursing staff that patient feels nothing has been done for her and that we do not care for her . She also told the nurse they have not looked at my ligaments and tendons . Patient was informed x-rays look for broken bones. She is not a candidate for an MRI. She was informed the CAT scan of her back revealed multiple abnormalities and the reason it was obtained. Since her exam has improved and a lot of this may be due to pain and cooperation plan is to discharge with opiate analgesia and burst of prednisone. We will have her follow-up with spine in the next several days patient informed the nurse that she normally walks with a walker. Will obtain a walker for her to go home with. Patient does not have any evidence of herniated disc or nerve foramen narrowing or impingement. Discharge Plan Triage Chief Complaint: Lower Extremity Injury Other Complaint: Fall ED Provider: Jony Love Dx/Rx/DC Orders Clinical Impression: Spinal stenosis of lumbar region at multiple levels, Injury due to fall, Strain of left knee Instructions: ED Back Pain (Acute or Chronic), ED Meniscal Injury Knee Poss Prescriptions: New hydrocodone-acetaminophen [hydrocodone-acetaminophen] 5-325 mg tablet 1 tab PO Q6H PRN PRN (Reason: Pain) 3 Days Qty: 10 0RF naproxen 500 mg tablet 500 mg PO BID Qty: 10 0RF No Action albuterol 90 mcg/actuation Aerosol INHALATION prednisone 20 mg tablet 40 mg PO DAILY Qty: 8 0RF fluconazole 150 mg tablet 150 mg PO DAILY Qty: 1 0RF Rx Instructions: take after finishing course of steroids (DME) [facility] See Rx Instructions .ROUTE .MEDSUPPLY Qty: 26 0RF Rx Instructions: As directed prednisone 20 mg tablet 40 mg PO DAILY Qty: 8 0RF Primary Care Provider: Daren Hamilton Referrals: Daren Hamilton DO [Primary Care Provider] - 3-5 Days Activity Restrictions/Additional Instructions: 1. Apply ice for 20 to 30 minutes per application 6-10 times a day to your lower back and left knee. 2. You will need to have your knee reexamined and 5 to 7 days to determine if more advanced imaging is needed 3. Take medication as prescribed 4. You may feel worse over the next 24 to 48 hours and hurt in more places and you presently do 5. Use your walker when you get up to navigate. Disposition Disposition: Home, Self Care
[2022-10-28] MEDS: Ondansetron ODT 4 MG Tablet PO (23:41)
[2022-10-28] MEDS: morphine 8 MG/ML Syringe IV (23:41)
[2022-10-29] MEDS: morphine 8 MG/ML Syringe IV (01:34)
[2022-10-29 02:40] VITALS: RESP 16
--- NOTE | 2022-10-29 03:10 | ED.RN ---
IN TO PT ROOM TO ASSIST IN AMBULATION. SHE VOICED I TOLD YOU PEOPLE WHEN I CAME IN HERE I COULDN'T WALK. DISCUSSED SHE HAS BEEN MEDICATED WITH SIGNIFICANT AMOUNT OF MORPHINE AND AMBULATION NEEDED TO BE ATTEMPTED TO DETERMINE IF SHE WAS SAFE TO GO HOME. SHE IS ABLE TO SIT TO SIDE OF BED INDEPENDENTLY WITHOUT DIFFICULTY. DISCUSSED GETTING HER CRUTCHES, AND SHE REPORTS SHE DOESN'T THINK SHE WOULD BE ABLE TO USE CRUTCHES AND THAT SHE PERVIOUSLY USED A WALKER, AND IS STILL SUPPOSED TO BE USING ONE. WHEN ASKED WHY SHE DOESN'T USE A WALKER SHE BEGAN TO GET SHORT AND SNAPPED HER ANSWERS BACK TO THE NURSE. SHE ATTEMPTED TO TAKE ONE STEP AND AFTER SHE PUT WEIGHT ON HER LEG SHE YELLED OUT, JUMPED BACKWARDS INTO THE BED, LOOKED AT THIS NURSE AND SAID IT FUCKING HURTS I TOLD YOU THAT. REQUESTED THAT SHE NOT CUSS AT THIS NURSE AND SHE SAID WELL I TOLD YOU IT HURTS AND YOU DON'T CARE, NO ONE CARES, NO ONE HAS DONE ANYTHING FOR ME HERE. ADVISED XRAYS AND CT WAS TAKEN, AND SHE WAS MEDICATED WITH 16MG OF MORPHINE. SHE AGAIN BEGINS TO YELL AT NURSE SO THIS NURSE EXITED ROOM. LATER WENT BACK TO ROOM AND PT STATED SHE WAS UPSET WITH NURSE FOR WALKING OUT, INFORMED HER THAT THIS NURSE WOULD NOT TOLERATE BEING CUSSED AND YELLED AT.
== END 2022-10-29 03:29 | disposition home or self-care (01) ==
PROVIDERS: Emergency Provider Emergency Medicine; PCP Student in an Organized Health Care Education/Training Program; Visit Provider Emergency Medicine
DX: S39.012A Strain of muscle, fascia and tendon of lower back, initial encounter (principal); S83.92XA Sprain of unspecified site of left knee, initial encounter; F17.210 Nicotine dependence, cigarettes, uncomplicated; I10 Essential (primary) hypertension; R26.2 Difficulty in walking, not elsewhere classified; W18.30XA Fall on same level, unspecified, initial encounter; M48.061 Spinal stenosis, lumbar region without neurogenic claudication; J45.909 Unspecified asthma, uncomplicated
CPT/HCPCS: 72131; 73564; 96374; 99284; A4216

== ENCOUNTER → 2022-12-12 | Outpatient (CLI) | payer MEDICAID, SELFPAY ==
--- NOTE | 2022-12-12 11:22 | MRI_ITS ---
STUDY: MRI LUMBAR SPINE WITHOUT CONTRAST REASON FOR EXAM: Female, 47 years old. Pain. Fell and hurt back and fractured tibia October 28. TECHNIQUE: Standardized fat and water weighted pulse sequences were obtained in the sagittal and axial planes. COMPARISON: CT lumbar spine without contrast 10/29/2022. FINDINGS: T11-T12: (Sagittal only). Normal endplates. Minimal disc space height narrowing. Small ventral extradural defect behind the lower T11 vertebral body (series 2, 3 and 4, images 9). Normal central canal and bilateral intervertebral neural foramina. T12-L1: (Sagittal only). Normal endplates. Normal disc height, hydration and morphology. Normal central canal and bilateral intervertebral neural foramina. Normal lumbar lordosis. There is no substantial scoliosis. Normal conus medullaris that terminates at the T12-L1 disc space level. L1-2: Normal endplates. Normal disc height, hydration and morphology. Normal bilateral facet joints. Normal central canal and bilateral lateral recesses. Normal bilateral intervertebral neural foramina. L2-3: Normal endplates. Normal disc height, hydration and morphology. Normal bilateral facet joints. Normal central canal and bilateral lateral recesses. Normal bilateral intervertebral neural foramina. L3-4: Normal endplates. Normal disc height, hydration and morphology. Mild asymmetric degenerative facet arthropathy.. Mild central canal stenosis with an AP canal diameter of 9.6 mm. Normal bilateral lateral recesses. Normal bilateral intervertebral neural foramina. L4-5: Normal endplates. Normal disc height. Minimal ventral extradural defect due to small posterior bulging annulus. Mild asymmetric degenerative facet arthropathy, left greater than right. Prominent dorsal epidural lipomatosis. Moderate central canal stenosis with an AP canal diameter 7 mm. Normal bilateral lateral recesses. Normal bilateral intervertebral neural foramina. L5-S1: Normal endplates. Normal disc height, hydration and morphology. Mild bilateral degenerative facet arthropathy. Normal central canal and bilateral lateral recesses. Normal bilateral intervertebral neural foramina. Normal visualized sacral ala. Normal visualized paraspinous soft tissue structures. MRI/Spine Lumbar (Routine) IMPRESSION: 1. Moderate central canal stenosis at L4-L5 disc space level with an AP canal diameter 7 mm, small posterior bulging annulus and mild asymmetric degenerative facet arthropathy. 2. Mild central canal stenosis at L3-L4 disc space level with an AP canal diameter of 5.6 mm and mild asymmetric degenerative facet arthropathy. 3. Mild bilateral L5-S1 degenerative facet arthropathy. 4. Small midline ventral extradural defect behind the lower T11 vertebral body (series 2, 3 and 4, images 9). This may represent a small extruded and sequestered disc fragment. There is, however, no associated spinal stenosis. Its clinical significance is questionable. Unfortunately, no axial views were provided. Electronically Signed: Davey Child MD at 10:16 EDT ,
== END | disposition home or self-care (01) ==
LOC: MRI 11:06
PROVIDERS: PCP Student in an Organized Health Care Education/Training Program
DX: M54.50 Low back pain, unspecified (principal); M79.605 Pain in left leg
CPT/HCPCS: 72148

== ENCOUNTER 2023-09-01 23:39 | Emergency (ER) | payer MEDICAID, SELFPAY ==
[2023-09-01 23:40] VITALS: BP 171/98; PULSE 83; RESP 16; TEMP 36; O2SAT 96; BMI 48.7
[2023-09-01 23:42] VITALS: BP 171/98; PULSE 81; RESP 16; TEMP 36; O2SAT 96
[2023-09-02 01:01] LABS: Color, Urine Yellow (Yellow); Glucose, Dipstick Normal (Normal); Ketone-Dipstick Negative (Negative); Leukocyte Esterase-Dipstick 500 /ul (Negative); Nitrite-Dipstick Negative (Negative); Occult Blood-Urine 250 /ul (Negative); Protein-Dipstick 30 mg/dl (Negative); Specific Gravity, Urine 1.025 (1.002-1.030); Urine Bilirubin Dipstick Negative (Negative); Urine Clarity Sl. Cloudy (Clear); Urine Urobilinogen 1 mg/dl (Normal)
[2023-09-02 01:02] LABS: Absolute Lymphocyte Count 3.14 X10^3/uL (0.83-4.51); Absolute Neutrophil Count 7.8 X10^3/uL (2.0-7.7); Basophil# 0.08 X10^3/uL; Basophil% 0.7 % (0-1); Eosinophil# 0.19 X10^3/uL; Eosinophils% 1.6 % (0-5); Hematocrit 45.3 % (37-47); Hemoglobin 14.8 g/dL (12.0-15.0); Lymphocyte # 3.14 X10^3/ul (0.83-4.51); Lymphocyte % 26.2 % (19-41); Mean Corp Hgb Conc 32.7 g/dL (32-36); Mean Corpuscular Hgb 29.8 pg (27.0-32.0); Mean Corpuscular Volume 91.1 fL (81-99); Mean Platelet Vol. 10.3 fl (6.2-12.0); Monocyte# 0.76 X10^3/uL; Monocyte% 6.3 % (0-10); NRBC Flagged by Analyzer 0 % (0-5); Neutrophil # 7.77 X10^3/uL (2.7-7.7); Neutrophil % 64.9 % (47-70); Platelet Count 136 K/mm3 (150-450); RBC Distribution Width CV 12.8 % (11.6-14.6); RBC Distribution Width SD 42.1 fl (35.1-43.9); Red Blood Count 4.97 M/mm3 (4.2-5.4)
[2023-09-02 01:12] LABS: Bacteria 1+ /hpf (None Seen); Mucous, Urine 1+ /hpf (<or=2+); Red Blood Cells-Urine 5-10 SEEN /hpf (0-5); Squamous Epithelial Cells - UA 0-5 SEEN /hpf (5-10); White Blood Cells 25-50 SEEN /hpf (0-5)
[2023-09-02 01:20] VITALS: BP 149/77; PULSE 69; RESP 16; O2SAT 99
--- NOTE | 2023-09-02 01:20 | EX.ED.DYSGE1 ---
HPI History of Present Illness Chief Complaint: Complaint Informant: patient Narrative Narrative: Patient states for the past 5 days has been having dysuria, states it feels like she is urinating razor blades, followed by discomfort in her lower abdomen, discomfort in her back that is mostly on the right side, some nausea but no vomiting or fever/chills. This is the first visit she has had to evaluate this. [facility] Medical History Stroke Anemia Stomach ulcer Kidney disease Arthritis Rectocele Cystocele HTN (hypertension) Asthma Home Medications ?Medication ?Instructions ?Recorded ?Last Taken ?Type albuterol 90 mcg/actuation aerosol mcg inhalation 09/10/21 Unknown History inhaler blood sugar diagnostic (True #10 ea 11/17/22 Unknown History Metrix Glucose Test Strip) blood-glucose meter (True Metrix #1 ea 11/17/22 Unknown History Glucose Meter) lancets 33 gauge (Unilet Lancet) #100 ea 11/17/22 Unknown History sulfamethoxazole 800 1 tab PO BID #14 TABLETS 09/02/23 Unknown Rx mg-trimethoprim 160 mg tablet Allergy/AdvReac Type Severity Reaction Status Date / Time latex Allergy Severe Swelling Verified 09/01/23 23:41 amoxicillin (Amoxicillin) Allergy Rash Verified 09/01/23 23:41 cephalexin (Cephalexin) Allergy Rash Verified 09/01/23 23:41 ketorolac tromethamine (From Allergy Shortness Verified 09/01/23 23:41 Toradol) of breath levofloxacin (From Levaquin) Allergy Shortness Verified 09/01/23 23:41 of breath NSAIDS (Non-Steroidal Allergy Shortness Verified 09/01/23 23:41 Anti-Inflamma of breath Penicillins Allergy Rash Verified 09/01/23 23:41 Pertussis Vaccines Allergy Rash Verified 09/01/23 23:41 diphenhydramine HCl (From AdvReac Other Verified 09/01/23 23:41 Benadryl) Family History Other CVA (cerebral vascular accident) Cancer Eczema Heart disease Hypertension Liver disease MTHFR (methylene THF reductase) deficiency and homocystinuria Psoriasis Thyroid disorder Surgical History H/O section H/O removal of cyst History of appendectomy History of cholecystectomy History of hysterectomy Social History household members: spouse and children Smoking Status: Current every day smoker tobacco type: cigarettes substance use type: does not use ROS ROS ED Constitutional Constitutional ED: Denies chills or fever(s) Gastrointestinal Gastrointestinal: Reports abdominal pain and nausea; Denies vomiting Genitourinary Genitourinary ED: Reports dysuria, urinary frequency and urinary urgency Musculoskeletal Musculoskeletal: Reports back pain EXAM Physical Exam Const Vital Signs: 09/01/23 23:40 09/01/23 23:42 Temperature 96.8 F L 96.8 F L Temperature Source Temporal Temporal Pulse Rate 83 81 Respiratory Rate 16 16 Blood Pressure 171/98 H 171/98 H Blood Pressure Mean 122 122 Pulse Ox 96 96 Positive well nourished, well developed and obese Constitutional Narrative: Well-appearing General Appearance ED: well developed and NAD Nutritional Appearance: obese Resp normal respiratory effort GI normal to inspection, nondistended, normoactive bowel sounds GI Narrative: Mild suprapubic tenderness otherwise benign abdomen Back/Spine no CVA tenderness Back/Spine Narrative: Normal inspection normal range of motion without significant discomfort Psych mental status grossly normal Skin no rashes or lesions noted and no wounds MDM MDM MDM Narrative Medical decision making narrative: Patient's urinalysis is consistent with infection. I sent this for culture because she is having some symptoms of early pyelonephritis although she has no CVA tenderness and a mild white blood count, labs were obtained by nursing prior to my evaluating the patient. I am treating her empirically with Bactrim and a dose of Pyridium here, but otherwise she is well-appearing, stable vital signs stable for discharge home. Lab Data Attestation: I reviewed the patient's lab results. Labs: Laboratory Results - last 24 hr 09/02/23 00:56 WBC 12.0 H RBC 4.97 Hgb 14.8 Hct 45.3 MCV 91.1 MCH 29.8 MCHC 32.7 RDW Std Deviation 42.1 RDW Coeff of Rafi 12.8 Plt Count 136 L MPV 10.3 Immature Gran % (Auto) 0.300 Neut % (Auto) 64.9 Lymph % (Auto) 26.2 Johnston % (Auto) 6.3 Eos % (Auto) 1.6 Baso % (Auto) 0.7 Absolute Neuts (auto) 7.8 H Absolute Lymphs (auto) 3.14 Nucleated RBC % 0 Sodium 139 Potassium 4.0 Chloride 106 Carbon Dioxide 25.0 Anion Gap 8 BUN 9 Creatinine 0.82 Estim Creat Clear Calc 122.28 Est GFR (MDRD) Af Amer 96 Est GFR (MDRD) Non-Af 79 BUN/Creatinine Ratio 10.9 Glucose 139 H Calcium 9.2 Total Bilirubin 0.50 AST 67 H ALT 55 Alkaline Phosphatase 140 H Total Protein 7.8 Albumin 3.6 Globulin 4.2 Albumin/Globulin Ratio 0.9 Urine Color Yellow Urine Clarity Sl. Cloudy Urine pH 6.0 Ur Specific [place] 1.025 Urine Protein 30 H Urine Glucose (UA) Normal Urine Ketones Negative Urine Occult Blood 250 H Urine Nitrite Negative Urine Bilirubin Negative Urine Urobilinogen 1 H Ur Leukocyte Esterase 500 H Urine RBC 5-10 SEEN Urine WBC 25-50 SEEN Ur Squamous Epith Cells 0-5 SEEN Urine Bacteria 1+ Urine Mucus 1+ Discharge Plan Triage Chief Complaint: Complaint ED Provider: Cullen Hernández Dx/Rx/DC Orders Clinical Impression: Acute cystitis without hematuria Instructions: ED UTIs Women Prescriptions: New sulfamethoxazole-trimethoprim 800-160 mg tablet 1 tab PO BID Qty: 14 0RF No Action (DME) lancets [Unilet Lancet] 33 gauge misc See Rx Instructions .ROUTE .MEDSUPPLY Qty: 100 Patient Comments: USE TO TEST BLOOD SUGAR DIRECTED Rx Instructions: As directed (DME) True Metrix Glucose Test Strip Strip See Rx Instructions .ROUTE .MEDSUPPLY Qty: 10 Patient Comments: USE TO TEST BLOOD SUGAR DIRECTED Rx Instructions: As directed (DME) blood-glucose meter [True Metrix Glucose Meter] Misc See Rx Instructions .ROUTE .MEDSUPPLY Qty: 1 Patient Comments: USE DIRECTED TO TEST BLOOD SUGAR Rx Instructions: As directed albuterol 90 mcg/actuation Aerosol INHALATION Primary Care Provider: Daren Hamilton Referrals: Daren Hamilton DO [Primary Care Provider] - 3-5 Days if not improving Print Language: Georgian Disposition Disposition: Home, Self Care
[2023-09-02 01:23] LABS: ALB/GLOB Ratio 0.9 RATIO (0.9-2.4); AST(SGOT) 67 U/L (15-37); Alanine Aminotransfer ALT/SGPT 55 U/L (13-56); Albumin, Serum 3.6 g/dL (3.2-5.0); Alkaline Phosphatase 140 U/L (45-117); Anion Gap 8 (5-15); BUN 9 mg/dL (7-18); BUN/Creat Ratio 10.9 RATIO (10-20); Calcium,Total 9.2 mg/dL (8.5-10.1); Chloride 106 mmol/L (98-107); Creatinine, Serum 0.82 mg/dL (0.55-1.02); EST Glomerular Filtration Rate 79 mL/min (>60); Est Glom Filt Rate - Afr Amer 96 mL/min (>60); Estimated Creatinine Clearance 122.28 ml/min; Globulin 4.2 g/dL (2.2-4.2); Glucose 139 mg/dL (74-106); Protein, Total 7.8 g/dL (6.4-8.2); Sodium Level 139 mmol/L (136-145)
[2023-09-02] MEDS: Phenazopyridine 95 MG Tablet 190 MG PO (01:52)
[2023-09-02] MEDS: Smz/Tmp Ds Tablet 1 TABLET PO (01:52)
[2023-09-02 01:55] VITALS: BP 146/94; PULSE 71; RESP 16; TEMP 36.8; O2SAT 99
== END 2023-09-02 01:56 | disposition home or self-care (01) ==
PROVIDERS: Emergency Provider Emergency Medicine; PCP Student in an Organized Health Care Education/Training Program; Visit Provider Emergency Medicine
DX: N30.00 Acute cystitis without hematuria (principal); F17.210 Nicotine dependence, cigarettes, uncomplicated; E66.9 Obesity, unspecified; Z90.49 Acquired absence of other specified parts of digestive tract; Z90.710 Acquired absence of both cervix and uterus; I10 Essential (primary) hypertension; Z86.73 Personal history of transient ischemic attack (TIA), and cerebral infarction without residual deficits; J45.909 Unspecified asthma, uncomplicated
CPT/HCPCS: 80053; 81001; 85025; 87086; 87088; 99284

== ENCOUNTER 2023-09-23 02:41 | Emergency (ER) | payer MEDICAID, SELFPAY ==
[2023-09-23 02:42] VITALS: BP 162/97; PULSE 99; RESP 17; TEMP 37.2; O2SAT 97
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
[2023-09-23] MEDS: Oxycodone/Apap 5/325 Tablet PO (03:44)
[2023-09-23 04:28] VITALS: BP 140/76; PULSE 73; RESP 18; TEMP 36.4; O2SAT 96
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
== END 2023-09-23 04:34 | disposition home or self-care (01) ==
PROVIDERS: Emergency Provider Emergency Medicine; PCP Student in an Organized Health Care Education/Training Program; Visit Provider Emergency Medicine
DX: S00.03XA Contusion of scalp, initial encounter (principal); F17.210 Nicotine dependence, cigarettes, uncomplicated; J45.909 Unspecified asthma, uncomplicated; I10 Essential (primary) hypertension; Y04.8XXA Assault by other bodily force, initial encounter; E66.9 Obesity, unspecified; Z90.49 Acquired absence of other specified parts of digestive tract; Z90.710 Acquired absence of both cervix and uterus; Z86.73 Personal history of transient ischemic attack (TIA), and cerebral infarction without residual deficits
CPT/HCPCS: 70450; 99282

== ENCOUNTER 2023-10-01 17:02 | Emergency (ER) | payer MEDICAID, SELFPAY ==
[2023-10-01 17:04] VITALS: BP 144/97; PULSE 83; RESP 16; TEMP 36.2; O2SAT 97; BMI 48.2
--- NOTE | 2023-10-01 17:18 | EDS_ITS ---
HPI <TERRELL Lucero - Last Filed: 10/01/23 18:25> History of Present Illness Chief Complaint: Lower Extremity Injury Narrative Narrative: Patient is a 48-year-old female that uses a wheelchair as a form of transportation going long distances, patient does have history of spinal stenosis, chronic leg pain, who only takes vitamin D daily presents to the emergency department with left foot pain, swelling. Patient denies any known injury, she states she did run her toes over a few days ago from her wheelchair however this was unremarkable for pain afterwards. Patient states that she has been in the hospital secondary to her son having a baby. Patient is here for evaluation. She denies any fever chills nausea or vomiting. PFSH <TERRELL Lucero - Last Filed: 10/01/23 18:25> [facility] Medical History Stroke Anemia Stomach ulcer Kidney disease Arthritis Rectocele Cystocele HTN (hypertension) Asthma Home Medications ?Medication ?Instructions ?Recorded ?Last Taken ?Type albuterol 90 mcg/actuation aerosol mcg inhalation 09/10/21 Unknown History inhaler blood sugar diagnostic (True #10 ea 11/17/22 Unknown History Metrix Glucose Test Strip) blood-glucose meter (True Metrix #1 ea 11/17/22 Unknown History Glucose Meter) lancets 33 gauge (Unilet Lancet) #100 ea 11/17/22 Unknown History sulfamethoxazole 800 1 tab PO BID #14 TABLETS 09/02/23 Unknown Rx mg-trimethoprim 160 mg tablet oxycodone-acetaminophen 5 mg-325 1 tab PO Q6H PRN pain 3 days #12 09/23/23 Unknown Rx mg tablet (Percocet) tabs Allergy/AdvReac Type Severity Reaction Status Date / Time latex Allergy Severe Swelling Verified 10/01/23 17:03 amoxicillin (Amoxicillin) Allergy Rash Verified 10/01/23 17:03 cephalexin (Cephalexin) Allergy Rash Verified 10/01/23 17:03 ketorolac tromethamine (From Allergy Shortness Verified 10/01/23 17:03 Toradol) of breath levofloxacin (From Levaquin) Allergy Shortness Verified 10/01/23 17:03 of breath NSAIDS (Non-Steroidal Allergy Shortness Verified 10/01/23 17:03 Anti-Inflamma of breath Penicillins Allergy Rash Verified 10/01/23 17:03 Pertussis Vaccines Allergy Rash Verified 10/01/23 17:03 diphenhydramine HCl (From AdvReac Other Verified 10/01/23 17:03 Benadryl) Family History Other CVA (cerebral vascular accident) Cancer Eczema Heart disease Hypertension Liver disease MTHFR (methylene THF reductase) deficiency and homocystinuria Psoriasis Thyroid disorder Surgical History H/O section H/O removal of cyst History of appendectomy History of cholecystectomy History of hysterectomy Social History household members: spouse and children Smoking Status: Current every day smoker tobacco type: cigarettes substance use type: does not use ROS <TERRELL Lucero - Last Filed: 10/01/23 18:25> ROS ED ROS Narrative Constitutional: Negative for fever, chills, weight loss, weakness Eyes: Negative for vision loss, vision change, double vision ENT: Negative for any sore throat, ear pain, congestion Cardiovascular: Negative for any chest pain, tightness, palpitations Respiratory: Negative for any cough, sputum production, hemoptysis, dyspnea, dyspnea on exertion, orthopnea Gastrointestinal: Negative for any abdominal pain, nausea, vomiting, diarrhea, constipation, blood in stool, blood in vomit : Negative for any urinary frequency, dysuria, retention, blood in urine Muscle skeletal: Negative for any neck pain, back pain. Positive left foot pain Neurological: Negative for any headache, syncope, dizziness Skin: Negative for any rashes, itching, abrasions, lacerations Psychiatric: Negative for any depression, anxiety, stress, suicidal ideation, homicidal ideation Hematologic: Negative for any excessive bruising, easy bleeding EXAM <TERRELL Lucero - Last Filed: 10/01/23 18:25> Physical Exam Narrative Exam Narrative: Vital signs reviewed. HEET: Head normocephalic atraumatic, TMs clear bilaterally. Posterior pharynx is clear, moist mucous membranes. Nares clear bilaterally. Neck: Supple with no lymphadenopathy or tenderness. No signs of meningismus. Cardiac: Regular rate and rhythm no murmurs gallops or rubs, equal peripheral pulses bilaterally. Respiratory: Lungs clear to auscultation bilaterally. No chest tenderness. Abdomen: Soft, nontender, nondistended. No abdominal bruit or pulsatile masses. No hepatosplenomegaly Extremities: Patient does have some edema to the dorsal aspect of the left foot. Patient does have pain to her toes, as well as around the fourth and fifth metatarsal., no signs of gross trauma or deformity. Active full range of motion of all extremities. Neuro: Cranial nerves II through XII intact, no focal neurological deficits. Skin: Clean dry and intact with no rash, purpura, petechiae, vesicles or pustules. Backs/flank: No CVA tenderness, no midline spinal tenderness, no deformity. Psych: Normal mood and affect. No SI, HI or acute psychosis. Const Vital Signs: 10/01/23 17:04 Temperature 97.2 F L Temperature Source Temporal Pulse Rate 83 Respiratory Rate 16 Blood Pressure 144/97 H Blood Pressure Mean 112 Pulse Ox 97 Oxygen Delivery Method Room Air <Dr. Zelalem Smith DO - Last Filed: 10/01/23 17:58> Physical Exam Const Vital Signs: 10/01/23 17:04 Temperature 97.2 F L Temperature Source Temporal Pulse Rate 83 Respiratory Rate 16 Blood Pressure 144/97 H Blood Pressure Mean 112 Pulse Ox 97 Oxygen Delivery Method Room Air MDM <TERRELL Lucero - Last Filed: 10/01/23 18:25> [facility] Radiography Diagnostic Testing: Clinical Impression(s) from Imaging Studies Foot X-Ray 10/01/23 17:25 IMPRESSION: 1. Soft tissue swelling along the dorsal surface of the forefoot. No evidence of fracture or radiopaque foreign body or soft tissue gas. 2. Normal alignment of bony elements and joint spaces of the foot. Electronically Signed: Cody Finney MD at 17:38 EDT , Treatment and Re-Evaluation :: Differential diagnosis includes however is not limited to: Gouty arthritis, soft tissue swelling, cellulitis, fracture, strain Patient appears to be in no obvious distress vital signs are stable, patient is nontoxic-appearing. Presenting to the emergency department for some swelling to the left foot. There is no significant cellulitis, no signs of deep tissue infection, no significant signs of injury. X-rays 3 views were completed, interpreted by ER physician, did show some soft tissue swelling along the dorsal surface of the forefoot. No evidence of fracture or radiopaque foreign body or soft tissue gas. Normal alignment of the bony elements and joint spaces of the foot. Secondary to this finding, patient be placed in a postop shoe, will ice and elevate. Take Tylenol for pain. She is instructed return for any worsening symptoms. Patient stable for discharge. <Dr. Zelalem Smith, DO - Last Filed: 10/01/23 17:58> [facility] Narrative Medical decision making narrative: I have personally performed a face to face assessment of the patient and have reviewed the JOHN Note. I performed a substantive portion of the visit including all aspects of the following. My manzano findings include: History: Patient presents with pain and swelling to her left foot that has been getting worse over the past few days. Patient states she accidentally ran over her foot with her wheelchair. Patient states that sometimes she ambulates short distances but for long distances, she needs to use a wheelchair. Patient states her pain is worse with any weightbearing or movement. Patient describes pain as aching, burning, and throbbing. Patient denies any paresthesias or weakness. Patient denies any other injuries. Exam: Vital signs are stable. Patient is afebrile. Patient is in no acute distress. Musculoskeletal exam reveals edema, tenderness, and some mild ecchymosis over the metatarsals of the left foot. There is no obvious deformity noted. Range of motion was limited in all motions of the left foot secondary to pain. Sensation was intact to light touch in all digits. Capillary refill was less than 2 seconds in all digits. Medical Decision Making: Differential diagnosis includes fracture, sprain, and contusion. X-rays of the left foot will be obtained to assess for fracture and dislocation. X-rays of the left foot were obtained. There are 3 views. On my independent interpretation, there is no acute fracture or dislocation noted. There is some soft tissue swelling noted. Radiologist also interpreted the x- rays and agrees. Patient was advised of her findings. Patient was instructed to ice and elevate her left foot. Patient was instructed to take Tylenol as needed for pain. Patient was instructed to follow-up with her primary care physician in 5 to 7 days. Patient understood and was agreeable with the plan. All questions were answered. Radiography Diagnostic Testing: Clinical Impression(s) from Imaging Studies Foot X-Ray 10/01/23 17:25 IMPRESSION: 1. Soft tissue swelling along the dorsal surface of the forefoot. No evidence of fracture or radiopaque foreign body or soft tissue gas. 2. Normal alignment of bony elements and joint spaces of the foot. Electronically Signed: Cody Finney MD at 17:38 EDT , Discharge Plan Triage Chief Complaint: Lower Extremity Injury ED Midlevel Provider: Endy Vargas ED Provider: Zelalem Smith Dx/Rx/DC Orders Clinical Impression: Foot swelling, Acute foot pain Instructions: ED Pain, Acute, Uncertain Cause, ED RICE Prescriptions: No Action (DME) lancets [Unilet Lancet] 33 gauge misc See Rx Instructions .ROUTE .MEDSUPPLY Qty: 100 Patient Comments: USE TO TEST BLOOD SUGAR DIRECTED Rx Instructions: As directed (DME) True Metrix Glucose Test Strip Strip See Rx Instructions .ROUTE .MEDSUPPLY Qty: 10 Patient Comments: USE TO TEST BLOOD SUGAR DIRECTED Rx Instructions: As directed (DME) blood-glucose meter [True Metrix Glucose Meter] Misc See Rx Instructions .ROUTE .MEDSUPPLY Qty: 1 Patient Comments: USE DIRECTED TO TEST BLOOD SUGAR Rx Instructions: As directed albuterol 90 mcg/actuation Aerosol INHALATION oxycodone-acetaminophen [Percocet] 5-325 mg tablet 1 tab PO Q6H PRN (Reason: pain) 3 Days Qty: 12 0RF sulfamethoxazole-trimethoprim 800-160 mg tablet 1 tab PO BID Qty: 14 0RF Primary Care Provider: Daren Hamilton Referrals: Daren Hamilton DO [Primary Care Provider] - Activity Restrictions/Additional Instructions: Ensure the ice, elevate, use the postop shoe. Print Language: Hungarian Disposition Disposition: Home, Self Care
--- NOTE | 2023-10-01 17:25 | RAD_ITS ---
INDICATION: swelling EXAMINATION/TECHNIQUE: X-RAY - LEFT XR Foot Min 3 Views 3 VIEWS COMPARISON: No relevant prior comparison study available FINDINGS: SOFT TISSUES: There is moderate swelling dorsum of the foot without soft tissue gas. No radiopaque foreign body. BONES/JOINTS: No acute fracture or subluxation.. Normal alignment. Preservation of the joint space.. No sclerotic or destructive changes observed. RAD/Foot min 3 Views IMPRESSION: 1. Soft tissue swelling along the dorsal surface of the forefoot. No evidence of fracture or radiopaque foreign body or soft tissue gas. 2. Normal alignment of bony elements and joint spaces of the foot. Electronically Signed: Cody Finney MD at 17:38 EDT ,
[2023-10-01 18:36] VITALS: BP 144/97; PULSE 83; RESP 16; TEMP 36.2; O2SAT 97
== END 2023-10-01 18:38 | disposition home or self-care (01) ==
PROVIDERS: Emergency Provider Emergency Medicine; PCP Student in an Organized Health Care Education/Training Program; Visit Provider Emergency Medicine
DX: M79.89 Other specified soft tissue disorders (principal); F17.210 Nicotine dependence, cigarettes, uncomplicated; M79.673 Pain in unspecified foot; Z90.49 Acquired absence of other specified parts of digestive tract; Z90.710 Acquired absence of both cervix and uterus; I10 Essential (primary) hypertension; Z86.73 Personal history of transient ischemic attack (TIA), and cerebral infarction without residual deficits; J45.909 Unspecified asthma, uncomplicated; Z99.3 Dependence on wheelchair
CPT/HCPCS: 73630; 99282

== ENCOUNTER 2024-03-01 03:45 | Emergency (ER) | payer SELFPAY ==
[2024-03-01 03:46] VITALS: BP 158/94; PULSE 78; RESP 20; TEMP 36.6; O2SAT 97; BMI 46.6
[2024-03-01 03:48] VITALS: BP 158/94; PULSE 76; RESP 18; TEMP 36.6; O2SAT 98
--- NOTE | 2024-03-01 03:54 | EDS_ITS ---
HPI History of Present Illness Chief Complaint: Lower Extremity Injury [facility] Medical History Stroke Anemia Stomach ulcer Kidney disease Arthritis Rectocele Cystocele HTN (hypertension) Asthma Home Medications ?Medication ?Instructions ?Recorded ?Last Taken ?Type albuterol 90 mcg/actuation aerosol mcg inhalation 09/10/21 Unknown History inhaler blood sugar diagnostic (True #10 ea 11/17/22 Unknown History Metrix Glucose Test Strip) blood-glucose meter (True Metrix #1 ea 11/17/22 Unknown History Glucose Meter) lancets 33 gauge (Unilet Lancet) #100 ea 11/17/22 Unknown History sulfamethoxazole 800 1 tab PO BID #14 TABLETS 09/02/23 Unknown Rx mg-trimethoprim 160 mg tablet oxycodone-acetaminophen 5 mg-325 1 tab PO Q6H PRN pain 3 days #12 09/23/23 Unknown Rx mg tablet (Percocet) tabs Allergy/AdvReac Type Severity Reaction Status Date / Time latex Allergy Severe Swelling Verified 03/01/24 03:45 amoxicillin (Amoxicillin) Allergy Rash Verified 03/01/24 03:45 cephalexin (Cephalexin) Allergy Rash Verified 03/01/24 03:45 ketorolac tromethamine (From Allergy Shortness Verified 03/01/24 03:45 Toradol) of breath levofloxacin (From Levaquin) Allergy Shortness Verified 03/01/24 03:45 of breath NSAIDS (Non-Steroidal Allergy Shortness Verified 03/01/24 03:45 Anti-Inflamma of breath Penicillins Allergy Rash Verified 03/01/24 03:45 Pertussis Vaccines Allergy Rash Verified 03/01/24 03:45 diphenhydramine HCl (From AdvReac Other Verified 03/01/24 03:45 Benadryl) Family History Other CVA (cerebral vascular accident) Cancer Eczema Heart disease Hypertension Liver disease MTHFR (methylene THF reductase) deficiency and homocystinuria Psoriasis Thyroid disorder Surgical History H/O section H/O removal of cyst History of appendectomy History of cholecystectomy History of hysterectomy Social History household members: spouse and children Smoking Status: Current every day smoker tobacco type: cigarettes substance use type: does not use EXAM Physical Exam Const Vital Signs: 03/01/24 03:46 03/01/24 03:48 Temperature 97.8 F 97.8 F Temperature Source Oral Oral Pulse Rate 78 76 Respiratory Rate 20 H 18 Blood Pressure 158/94 H 158/94 H Blood Pressure Mean 115 115 Pulse Ox 97 98 Oxygen Delivery Method Room Air Room Air MDM MDM MDM Narrative Medical decision making narrative: HISTORY OF PRESENT ILLNESS: 49-year-old female with history of arthritis, spinal stenosis and chronic leg pain. Denies trauma. Notes that started 2 hours prior to arrival. No inciting event. Patient denies active cancer, being bedridden for greater than 3 days, denies unilateral leg swelling, denies any varicose veins, denies any calf tenderness, denies tenderness along deep venous system. Denies major surgery within 12 weeks, recent paralysis, previous DVT. REVIEW OF SYSTEMS: Pertinent positives: Foot pain Pertinent negatives: Unilateral leg swelling, chest pain, shortness of breath, fever, rash PHYSICAL EXAM: Nursing triage notes reviewed, Vital signs reviewed Constitutional: please see mdm Lungs: Clear to auscultation, No wheezing or rales. No increased work of breathing, no conversational dyspnea, no accessory muscle use, no nasal flaring. No respiratory distress noted Heart: Regular rate and rhythm, No murmurs, No rubs and No gallops, 2+ distal pulses (radial, femoral, posterior tibial) in all extremities Extremities: No edema, full range of motion in hips, knees and ankles of bilateral lower extremities, no obvious deformities. Neuro: Intact sensation L1-S1 dermatomal distributions. Intact 5/5 strength in hip flexion (T12-L3). Knee extension (L2-L4). Ankle dorsiflexion (L4-L5). Ankle plantar flexion (S1). Great toe extension (L5). 2+ patellar and Achilles DTRs. Skin: No rash or lesions noted, bilateral lower extremities warm well-perfused MEDICAL DECISION MAKING: Chief Complaint: Leg pain External records reviewed: Reviewed prior ED visits, reviewed problem list, reviewed allergy list, reviewed vital signs Factors affecting care: none Social determinants of health: none History obtained from others: none Consults: none MDM Narrative: Patient was hemodynamically stable, afebrile and nontoxic-appearing. Exam without obvious signs of trauma, infection, arterial occlusion, DVT or issue. Bilateral lower extremities warm and well-perfused. I considered the following differential diagnosis: Fracture dislocation, arteria l occlusion, DVT, septic arthritis The patient's history and clinical exam were not consistent with fracture/dislocation, acute arterial occlusion, DVT, septic arthritis or necrotizing fasciitis. No clear life or limb threatening etiology could be ascertained. Offered oral non-narcotic pain medication in the ED [place] patient refused. The patient became very upset, rude, and patient, threatening and stated need to know your name and speak to your commissary manager. I informed the patient that I was the [facility] and that she can take up her complaints with me or our assisted living nursing director. Given patient refused any treatment and had no signs of obvious trauma or other life- threatening etiology of her leg she was discharged home. The patient and/or family, caregivers express understanding. The patient and/or family, caregivers agrees with the plan. Shared decision making: I will have a discussion with the patient and or visitors regarding risk/favian efits of further testing or admission. They will be made aware of of the risk/benefits inherent in this decision they will be given the opportunity to voice understanding. Total critical care time today provided was at least 0 minutes. This excludes separately billable procedures. Critical care time (if documented) is secondary to the patient having high probability of clinically significant/life threatening deterioration in the patient's condition which required my urgent intervention. Impression: 1. Acute on chronic foot pain Dispo: Discharge home This note was generated with [employer] dictation software. It may contain incorrect words, spelling, and punctuation that were not noted in review of the chart prior to signing. Discharge Plan Triage Chief Complaint: Lower Extremity Injury ED Provider: Jorge Harp Dx/Rx/DC Orders Clinical Impression: Chronic foot pain Instructions: ED Pain, Acute, Uncertain Cause Prescriptions: No Action (DME) lancets [Unilet Lancet] 33 gauge misc See Rx Instructions .ROUTE .MEDSUPPLY Qty: 100 Patient Comments: USE TO TEST BLOOD SUGAR DIRECTED Rx Instructions: As directed (DME) True Metrix Glucose Test Strip Strip See Rx Instructions .ROUTE .MEDSUPPLY Qty: 10 Patient Comments: USE TO TEST BLOOD SUGAR DIRECTED Rx Instructions: As directed (DME) blood-glucose meter [True Metrix Glucose Meter] Misc See Rx Instructions .ROUTE .MEDSUPPLY Qty: 1 Patient Comments: USE DIRECTED TO TEST BLOOD SUGAR Rx Instructions: As directed albuterol 90 mcg/actuation Aerosol INHALATION oxycodone-acetaminophen [Percocet] 5-325 mg tablet 1 tab PO Q6H PRN (Reason: pain) 3 Days Qty: 12 0RF sulfamethoxazole-trimethoprim 800-160 mg tablet 1 tab PO BID Qty: 14 0RF Primary Care Provider: Daren Hamilton Referrals: Michell Villa MD [[facility] Staff - Active Staff] - Activity Restrictions/Additional Instructions: Thank you for trusting us with your care today! Please take Tylenol (2 pills, 650 mg), ibuprofen (2 pills, 400 mg) every 6 hours as needed for pain and fever control. Please return to the emergency department if your symptoms change or worsen. Please follow with your primary care physician for further outpatient evaluation and management. Print Language: Estonian Disposition Disposition: Home, Self Care
--- NOTE | 2024-03-01 04:29 | ED.RN ---
Patient calls out requesting to speak to a nurse. This RN comes to bedside to find patient crying. Patient states she was treated awful by Dr Harp. She states he laughed in her face and gave her a wrong diagnosis he even tried to give me medication that I'm allergic to. This RN apologized multiple times. Patient states she is calling her civil litigation attorney in the morning and report him to the [place] [employer]. Patient asks to be wheeled to her car. Patient was assisted into wheelchair and taken to her car by security.
== END 2024-03-01 04:40 | disposition home or self-care (01) ==
PROVIDERS: Emergency Provider Emergency Medicine; Visit Provider Emergency Medicine
DX: M79.673 Pain in unspecified foot (principal); G89.29 Other chronic pain; M79.606 Pain in leg, unspecified; F17.210 Nicotine dependence, cigarettes, uncomplicated; Z90.710 Acquired absence of both cervix and uterus; I10 Essential (primary) hypertension; Z90.49 Acquired absence of other specified parts of digestive tract; J45.909 Unspecified asthma, uncomplicated; Z86.73 Personal history of transient ischemic attack (TIA), and cerebral infarction without residual deficits
CPT/HCPCS: 99283